=== PATIENT | female | born 2000 | race Caucasian/White ===

== ENCOUNTER 2020-10-28 19:45 | Emergency (ER) | payer OTHER ==
--- NOTE | 2020-10-28 20:26 | EDM.PDOC ---
ED HPI GENERAL MEDICAL PROBLEM - General Chief Complaint: General Stated Complaint: nausea Time Seen by Provider: 10/28/20 20:25 Source of Information: Reports: Patient History Limitations: Reports: No Limitations - History of Present Illness INITIAL COMMENTS - FREE TEXT/NARRATIVE: 20-year-old female who reports at approximately 3 PM today she developed a headache in her occipital area. It became progressively worse and at 6 PM she reports she had some nausea and had vomiting and has had vomiting 2. The headache is now in her occipital area and behind her right eye and forehead area. She reports that this pattern is like previous migraines but just more severe. She does have photophobia associated with this. There is no neck stiffness. She reports the pain as an 8-9/10. The pain sharp and aching. It does not radiate. She continues to be nauseated. She did have COVID with a positive test on 10/03/2020 and finish quarantine on 10/13/2020 and has had no symptoms in this regard since that time. There has been no diarrhea. No abdominal pain. No back pain. No body aches. There are no other associates signs or symptoms. There are no other modifying factors. 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 ED ROS GENERAL - Review of Systems Review Of Systems: See Below Constitutional: Reports: No Symptoms HEENT: Reports: No Symptoms Respiratory: Reports: No Symptoms Cardiovascular: Reports: No Symptoms GI/Abdominal: Reports: Nausea, Vomiting : Reports: No Symptoms Musculoskeletal: Reports: No Symptoms Skin: Reports: No Symptoms Neurological: Reports: Dizziness, Headache Hematologic/Lymphatic: Reports: No Symptoms Immunologic: Reports: No Symptoms ED EXAM, GENERAL - Physical Exam Exam: See Below Exam Limited By: No Limitations General Appearance: Alert, WD/WN, Mild Distress, Other (She is alert, fluent and appropriate in her conversation and appears nontoxic.) Eye Exam: Bilateral Eye: EOMI, Normal Inspection, PERRL, Other (Photophobia) Ears: Normal External Exam, Hearing Grossly Normal Ear Exam: Bilateral Ear: Auricle Normal Nose: Normal Inspection, Normal Mucosa, No Blood Throat/Mouth: Normal Voice, No Airway Compromise, Other (Somewhat dry mucous membranes) Head: Atraumatic, Normocephalic Neck: Normal Inspection, Supple, Non-Tender, Full Range of Motion Respiratory/Chest: No Respiratory Distress, Lungs Clear, Normal Breath Sounds, No Accessory Muscle Use, Chest Non-Tender Cardiovascular: Normal Peripheral Pulses, Regular Rate, Rhythm, No Murmur Peripheral Pulses: 2+: Radial (L), Radial (R) GI/Abdominal: Normal Bowel Sounds, Soft, Non-Tender, No Mass Back Exam: Normal Inspection, Full Range of Motion Extremities: Normal Inspection, Normal Range of Motion, Non-Tender, No Pedal Edema, Normal Capillary Refill Neurological: Alert, Oriented, CN II-XII Intact, Normal Cognition, No Motor/Sensory Deficits Psychiatric: Normal Affect Skin Exam: Warm, Dry, Intact, Normal Color, No Rash Course - Vital Signs Last Recorded V/S: Last Vital Signs Temp 36.4 C 10/28/20 22:10 Pulse 77 10/28/20 22:10 Resp 16 10/28/20 22:10 BP 102/62 10/28/20 22:10 Pulse Ox 99 10/28/20 22:10 - Orders/Labs/Meds Orders: Active Orders 24 hr Category Date Time Status Sodium Chloride 0.9% [Saline Flush] Med 10/28/20 20:26 Active 10 ml FLUSH ASDIRECTED PRN Peripheral IV Insertion Adult [OM.PC] Routine Oth 10/28/20 20:26 Ordered Medication Orders Sodium Chloride (Saline Flush) 10 ml FLUSH ASDIRECTED PRN PRN Reason: Keep Vein Open Last Admin: 10/28/20 21:28 Dose: 10 ml Documented by: MUEHNAN Meds: Medications Generic Name Dose Route Start Last Admin Trade Name Bety PRN Reason Stop Dose Admin Sodium Chloride 10 ml 10/28/20 20:26 10/28/20 21:28 Saline Flush FLUSH 10 ml ASDIRECTED PRN Administration Keep Vein Open Discontinued Medications Generic Name Dose Route Start Last Admin Trade Name Bety PRN Reason Stop Dose Admin Diphenhydramine HCl 50 mg 10/28/20 20:27 10/28/20 21:12 Benadryl IVPUSH 10/28/20 20:28 50 mg ONETIME ONE Administration Prochlorperazine Edisylate 10 52 mls @ 150 mls/hr 10/28/20 20:27 10/28/20 21:16 mg/ Sodium Chloride IV 10/28/20 20:47 150 mls/hr ONETIME ONE Administration Sodium Chloride 1,000 mls @ 999 mls/hr 10/28/20 20:27 10/28/20 20:55 Normal Saline IV 10/28/20 21:27 999 mls/hr .BOLUS ONE Administration Ketorolac Tromethamine 30 mg 10/28/20 20:39 10/28/20 21:09 Toradol IVPUSH 10/28/20 20:40 30 mg ONETIME ONE Administration - Re-Assessments/Exams Free Text/Narrative Re-Assessment/Exam: 10/28/20 22:35: Patient's exam was reassuring. She had no concerning signs or symptoms associated with this headache. Upon reevaluation of the patient at this time, she is resting comfortably when I came into the room. She has received all of her medications and all of the liter bolus of normal saline IV. She awakens easily and reports that she feels tired but she also reports that her headache is a 2/10 and seems to be going away. She has no more nausea and has had no more emesis since after the medications. She is vitally and neurologically stable. We will plan on getting her up and walking her and if she does okay with that the plan will be to discharge her home. Departure - Departure Time of Disposition: 22:47 Disposition: Home, Self-Care 01 Condition: Good (Improved) Clinical Impression: Dehydration Migraine headache Qualifiers: Migraine type: unspecified Status migrainosus presence: without status migrainosus Intractability: not intractable Qualified Code(s): G43.909 - Migraine, unspecified, not intractable, without status migrainosus Vomiting Qualifiers: Vomiting type: unspecified Vomiting Intractability: non-intractable Nausea presence: with nausea Qualified Code(s): R11.2 - Nausea with vomiting, unspecified - Discharge Information Instructions: Migraine Headache, [id number], Dehydration, Adult, [id number], Nausea and Vomiting, Adult, [id number] Referrals: Arnoldo Bauer MD [Primary Care Provider] - Forms: ED Department Discharge Additional Instructions: Your exam was reassuringly normal. You did seem to be somewhat dehydrated related to your vomiting. Your headache appears to be migraine headache but more severe than you have had in the past. You should rest. You should drink plenty of fluids. No school or track practice until 10/30/2020. Back to the emergency department for increasing headache, unrelenting vomiting, fever, neck stiffness, localized area of weakness or numbness, severe weakness or any other concerning sign or symptom. Sepsis Event Note (ED) - Focused Exam Vital Signs: Vital Signs Temp Pulse Resp BP Pulse Ox 10/28/20 22:10 36.4 C 77 16 102/62 99 10/28/20 21:31 36.4 C 78 16 112/62 0 L 10/28/20 21:10 36.6 C 76 16 112/72 99 10/28/20 20:10 36.4 C 82 16 117/75 99 - My Orders Last 24 Hours: My Active Orders 10/28/20 20:26 Sodium Chloride 0.9% [Saline Flush] 10 ml FLUSH ASDIRECTED PRN Peripheral IV Insertion Adult [OM.PC] Routine - Assessment/Plan Last 24 Hours: My Active Orders 10/28/20 20:26 Sodium Chloride 0.9% [Saline Flush] 10 ml FLUSH ASDIRECTED PRN Peripheral IV Insertion Adult [OM.PC] Routine
[2020-10-28] MEDS: Sodium Chloride 0.9% 1,000 ML IV ONE (20:55)
[2020-10-28] MEDS: Ketorolac 30 MG/ML SDV IVPUSH ONE (21:09)
[2020-10-28] MEDS: diphenhydrAMINE 50 MG/ML SDV IVPUSH ONE (21:12)
[2020-10-28] MEDS: Prochlorperazine 10 MG in Sodium Chloride 0.9% 50 ML IV ONE (21:16)
[2020-10-28] MEDS: Sodium Chloride 0.9% 10 ML Syringe FLUSH PRN (21:28)
== END 2020-10-28 23:00 | disposition home or self-care (01) ==
LOC: FB.ED 19:45
DX: G43.909 Migraine, unspecified, not intractable, without status migrainosus (principal); E86.0 Dehydration; R11.2 Nausea with vomiting, unspecified
CPT/HCPCS: 96365; 96375; 99283; J0780; J1200; J1885; J7030